=== PATIENT | male | born 1970 | race Caucasian/White ===

== ENCOUNTER 2024-01-08 08:37 | Emergency (ER) | payer OTHER, SELFPAY ==
[2024-01-08 08:40] VITALS: BP 143/93
[2024-01-08 08:52] VITALS: BP 143/93
[2024-01-08 08:57] VITALS: BMI 36.5
--- NOTE | 2024-01-08 08:57 | ED.GENMED ---
History of Present Illness
General
Chief Complaint: Crisis Evaluation
Source: patient
Time Seen by Provider: 01/08/24 08:47
History of Present Illness
History of Present Illness:
53yoM with a history of hypertension and hyperlipidemia presenting with police for psychiatric evaluation. Patient was in a verbal argument with her daughter and her daughter's boyfriend yesterday evening. He states he went to the bathroom and found
that the toilet paper was out. He went downstairs and asked them why it wasn't refilled. The boyfriend called him a drunk and he told him to 'F off.' He went to the store to buy toilet paper and when he came back, his daughter and boyfriend were
gone. The police then showed up at the house and left shortly after that. He admits to drinking a few whiskeys last night. Police came back to the house this morning after daughter filed a 302. Patient denies any SI/HI. He states he has had issues
with his daughter's boyfriend in the past. He underwent therapy a few months ago after he told the boyfriend he would 'whoop his ass.' He denies any prior physical altercations. He has no psychiatric diagnoses and is not on any psychiatric
medications.
Past History
Past History
ED Past Medical History: HTN and Hypercholesterolemia
ED Past Surgical History: Other (hernia repair age 16)
Social History
Tobacco: Non-smoker
Alcohol: Occasional
Drug: None
Phy Exam
General Physical Exam
General Presentation: well appearing and no apparent distress
General age: appears stated age
General Skin: warm and dry
General Habitus: normal
General Mental: alert
General Hydration: appears well hydrated
ENT Exam
ENT Exam: normocephalic
Pulmonary Exam
Pulmonary Exam: no respiratory distress
Neurological Exam
Neurological Exam: alert
[place] Coma Scale
Eye Opening: Spontaneous
Verbal Response: Oriented
Motor Response: Obeys Commands
GCS Total Score: 15
Skin Exam
Skin Exam: normal color and warm/dry
Psychiatric Exam
Psychiatric Exam: normal mood/affect and other (Normal mood/affect. No SI/HI. No signs of psychosis. Cooperative during exam and maintains good eye contact.)
Course
Orders/Labs/Results
Orders:
Orders
01/08/24 08:55
Crisis Consult Urgent
Reason for Consult: 302
01/08/24 09:00
1:1 Observation - Suicide/ Violent Behavior As Directed
01/08/24 14:00
Urine Drug Abuse Screen Urgent
Date Specimen was Collected: 01/08/24
Time Specimen was Collected: 13:59
01/08/24 15:03
EKG [Electrocardiogram (*1)] Urgent
Reason for Study: PreOp
01/08/24 15:04
EKG- Treatment ONCE
Vital Signs
Initial and Last Documented VS:
Initial Vital Signs
Temp Pulse Resp BP Pulse Ox
98.3 F 88 20 143/93 95
01/08/24 08:40 01/08/24 08:40 01/08/24 08:40 01/08/24 08:40 01/08/24 08:40
Last Documented Vital Signs
Temp Pulse Resp BP Pulse Ox
98.3 F 75 18 139/84 98
01/08/24 08:52 01/08/24 15:27 01/08/24 15:27 01/08/24 15:27 01/08/24 15:27
MDM/Problems Addressed
Differential Diagnosis Includes:
53yoM here after daughter petitioned 302 after a verbal argument last night. He admits to drinking alcohol yesterday. No physical altercation. No suicidal ideations. No prior psychiatric diagnoses or medications. VSS. He is cooperative during
assessment. No signs of psychosis. No medical complaints. He is medically cleared for crisis evaluation.
Initial ED plan: Crisis consult placed and 1:1 initiated.
*Critical Care Note
Total Time (30-74mins, 75-104mins- exclusive of procedures): Not Applicable
Update Note
Update Note:
Patient evaluated by crisis and telepsych. Unexpectedly, 302 was upheld by virtual psychiatrist. Patient remained cooperative on multiple reassessments and is very pleasant with staff. He was ultimately accepted by [facility]. Patient to be
transported at 5:30pm this evening.
ED Attending Note
-
Portions of this chart may have been created with voice recognition software.� Occasional wrong word or��sound alike� substitutions may have occurred due to the inherent limitations of voice recognition software.
Discharge Plan
Departure
Patient Disposition: Psych Facility
Date of Disposition: 01/08/24
Time of Disposition: 15:14
Discharge Problem:
Encounter for psychiatric assessment
Prescriptions:
No Action
ascorbic acid (vitamin C) [Vitamin C] 500 MG tablet
500 mg PO DAILY
zinc sulfate 220 MG capsule
220 mg PO DAILY
atorvastatin 40 MG tablet
40 mg PO QPM Qty: 90 0RF
metoprolol succinate 50 MG tablet extended release 24 hr
50 mg PO DAILY Qty: 60 0RF
tramadol 50 MG tablet
50 mg PO Q6HPRN PRN (Reason: Moderate to severe pain) Qty: 30 0RF
aspirin 81 MG tablet,chewable
81 mg PO DAILY 0RF
gabapentin 100 MG capsule
100 mg PO HS Qty: 60 0RF
cholecalciferol (vitamin D3) 2,000 UNITS tablet
2,000 units PO DAILY 0RF
ticagrelor [Brilinta] 90 MG tablet
90 mg PO BID Qty: 120 0RF
docusate sodium 100 MG capsule
100 mg PO BID Qty: 60 0RF
valsartan 160 MG tablet
160 mg PO DAILY Qty: 30 3RF
amlodipine 10 MG tablet
10 mg PO DAILY Qty: 30 3RF
Referrals:
Nancy Johnston MD [Family Provider] -
Interventions
Interventions:
*Risk Screen - Suicide Last Done: 01/08/24 08:54
*General Assessment Last Done: 01/08/24 08:54
*Neglect/Abuse Screening Last Done: 01/08/24 08:54
ED- Fall Risk Assessment Last Done: 01/08/24 08:53
*ED COVID-19 Vaccine History Last Done: 01/08/24 08:54
ED-Psychological Assessment Last Done: 01/08/24 08:51
Discharge Date and Time
Print Language: [place] CITIZ[place]
[2024-01-08 14:18] LABS: Amphetamines Negative (Negative); Barbiturates Negative (Negative); Benzodiazepines Negative (Negative); Buprenorphine Negative (Negative); Cocaine Negative (Negative); Marijuana Negative (Negative); Methadone Negative (Negative); Methamphetamines Negative (Negative); Opiates Negative (Negative); Phencyclidine Negative (Negative); Tricyclic Antidepressants Negative (Negative)
[2024-01-08 15:27] VITALS: BP 139/84
[2024-01-08] MEDS: LIPITOR 40 MG PO (17:11)
== END 2024-01-08 18:54 ==
LOC: EMR 08:37
PROVIDERS: Physician Assistant; EMERGENCY PHYSICIAN Emergency Medicine; FAMILY PHYSICIAN Internal Medicine
DX: Z00.8 Encounter for other general examination (principal); I10 Essential (primary) hypertension; E78.00 Pure hypercholesterolemia, unspecified
CPT/HCPCS: 99285; 80306; 93005